=== PATIENT | male | born 1960 | race Caucasian/White ===

== ENCOUNTER 2018-05-07 22:57 | Inpatient (IN) | payer MEDICAID ==
[2018-05-07] MEDS: GLUCAGON 1 MG INJ IV (23:00)
[2018-05-07] MEDS ORDERED: GLUCAGON 1 MG INJ ×2 (23:01→23:03)
[2018-05-07] MEDS: CALCIUM GLUCONATE 10% 2 GM in DEXTROSE 5% 100 ML IVPB (23:19)
[2018-05-07] MEDS: SOD CHLORIDE 0.9% 1,000 ML IV (23:20)
[2018-05-07] MEDS: LACTATED RINGER'S 1,000 ML IV ×2 (23:46)
[2018-05-07 23:59] LABS: AADO2 Arterial 184.1 mmHg (7.0-24.0); Allen Test ACCEPTAB; Arterial Base Excess -11.9 mmol/L (-3.0-3); Arterial Blood Gas Oxygen Sat 99.6 mmHG (95.0-98.0); Arterial COHb 0.3 % (0.0-3.0); Arterial Fraction of Oxyhgb 99.1 % (93.0-99.0); Arterial HCO3 12.8 mmol/L (22.0-26.0); Arterial MetHb 0.2 % (0.0-1.5); Arterial Total Hemglobin 11.1 g/dl (12.0-18.0); Arterial pCO2 25.9 mmhg (35-45); Blood Gas Low PEEP Setting 0 cmH2O; MODE VENT - AC; Site Right Radial
[2018-05-08] MEDS ORDERED: NORepinephrine 8MG/250 ML (PMX 250 ML IV
[2018-05-08 00:20] LABS: URINE PH (Dip) POC 5.5 (5.0-8.5)
[2018-05-08 00:20] LABS: URINE BLOOD (Dip) POC 2+ (NEGATIVE); URINE GLUCOSE (Dip) POC Negative (NEGATIVE); URINE KETONES (Dip) POC Trace (NEGATIVE); URINE LEUKOCYTE EST (Dip) POC 3+ (NEGATIVE); URINE NITRITE (Dip) POC Negative (NEGATIVE); URINE TOTAL PROTEIN POC 2+ (NEGATIVE)
[2018-05-08 00:20] LABS: LACTIC ACID 0.7 mmol/L (0.5-2.0)
[2018-05-08 00:21] LABS: ADD MAN DIFF? NO
[2018-05-08 00:22] LABS: BASOPHILS % 0.5 % (0.0-2.0); EOSINOPHILS # 0.2 10^3/ul (0.0-0.5); EOSINOPHILS % 3.1 % (0.0-7.0); HEMATOCRIT 36.9 % (42.0-52.0); HEMOGLOBIN 11.3 g/dl (14.0-18.0); LYMPHOCYTES # 1.8 10^3/ul (0.8-2.9); LYMPHOCYTES % 30.3 % (15.0-51.0); MEAN CORPUSCULAR HEMOGLOBIN 26.7 pg (29.0-33.0); MEAN CORPUSCULAR HGB CONC 30.6 g/dl (32.0-37.0); MEAN PLATELET VOLUME 11.5 fl (7.4-10.4); MONOCYTE # 0.7 10^3/ul (0.3-0.9); MONOCYTES % 11.5 % (0.0-11.0); NEUTROPHIL # 3.2 10^3/ul (1.6-7.5); NEUTROPHILS % 54.3 % (39.0-77.0); PLATELET COUNT 258 10^3/UL (140-415); RED BLOOD COUNT 4.24 10^6/ul (4.70-6.10); RED CELL DISTRIBUTION WIDTH 15.8 % (11.5-14.5)
[2018-05-08 00:22] LABS: WHITE BLOOD COUNT 5.9 10^3/ul (4.8-10.8)
[2018-05-08 00:41] LABS: ANION GAP 13 (8-16); BLOOD UREA NITROGEN 47 mg/dl (7-20); CALCIUM 9.1 mg/dl (8.4-10.2); CARBON DIOXIDE 15 mmol/L (21-31); CHLORIDE 117 mmol/L (97-110); CREATININE 3.93 mg/dl (0.61-1.24); GLUCOSE 99 mg/dl (70-220); POTASSIUM 4.4 mmol/L (3.5-5.1); SODIUM 141 mmol/L (135-144)
[2018-05-08 00:46] LABS: INR 0.98; PROTIME 13.1 Sec (11.9-14.9)
[2018-05-08 00:47] LABS: PARTIAL THROMBOPLASTIN TIME 28.1 Sec (25.0-35.0)
[2018-05-08 00:55] LABS: TROPONIN-I < 0.012 ng/ml (0.000-0.120)
[2018-05-08 01:13] LABS: AADO2 Arterial 158.3 mmHg (7.0-24.0); Allen Test ACCEPTAB; Arterial Base Excess -11.1 mmol/L (-3.0-3); Arterial Blood Gas Oxygen Sat 98.8 mmHG (95.0-98.0); Arterial COHb 0.3 % (0.0-3.0); Arterial Fraction of Oxyhgb 98.4 % (93.0-99.0); Arterial HCO3 14.2 mmol/L (22.0-26.0); Arterial MetHb 0.1 % (0.0-1.5); Arterial Total Hemglobin 11.5 g/dl (12.0-18.0); Arterial pCO2 29.9 mmhg (35-45); Blood Gas Low PEEP Setting 0 cmH2O; MODE VENT - AC; Site Right Radial
[2018-05-08 01:14] LABS: ADD UMIC YES; UR ASCORBIC ACID NEGATIVE (NEGATIVE); UR BACTERIA FEW /HPF (NONE SEEN); UR BILIRUBIN (Dip) NEGATIVE (NEGATIVE); UR BLOOD (Dip) 2+ mg/dL (NEGATIVE); UR CLARITY CLOUDY (CLEAR); UR COLOR YELLOW (YELLOW); UR GLUCOSE (Dip) NEGATIVE (NEGATIVE); UR KETONES (Dip) TRACE mg/dL (NEGATIVE); UR LEUKOCYTE ESTERASE (Dip) 3+ Leu/ul (NEGATIVE); UR NITRITE (Dip) NEGATIVE (NEGATIVE); UR RBC 113 /HPF (0-5); UR TOTAL PROTEIN (Dip) 1+ mg/dl (NEGATIVE); UR UROBILINOGEN (Dip) NEGATIVE (NEGATIVE); UR WBC 100 /HPF (0-5)
[2018-05-08] MEDS: CEFTRIAXONE 1 GM/50 ML (PMX) 50 ML IVPB ×2 (01:17→04:55)
[2018-05-08 01:23] LABS: ETHANOL < 10.0 mg/dl; SALICYLATE < 1.0 mg/dl (5.0-30.0)
[2018-05-08 01:23] LABS: ACETAMINOPHEN < 10.0 ug/ml (10.0-30.0)
[2018-05-08] MEDS ORDERED: ACETAMINOPHEN 650MG/20.3ML CUP PO (01:30)
[2018-05-08] MEDS ORDERED: ONDANSETRON 4 MG INJ IV (01:30)
[2018-05-08] MEDS ORDERED: ALBUTEROL HFA 8 GM INHALER INH (01:30)
[2018-05-08] MEDS: SOD CHLORIDE 0.9% 1,000 ML IV (02:00)
[2018-05-08] MEDS ORDERED: GLUCAGON 1 MG INJ IV (03:04)
[2018-05-08] MEDS: GLUCAGON 1 MG INJ IV (03:11)
[2018-05-08] MEDS: LORAZEPAM 2 MG INJ IV (03:37)
[2018-05-08 04:03] LABS: ANION GAP 15 (8-16); BLOOD UREA NITROGEN 41 mg/dl (7-20); CALCIUM 9.2 mg/dl (8.4-10.2); CARBON DIOXIDE 17 mmol/L (21-31); CHLORIDE 116 mmol/L (97-110); CREATININE 3.46 mg/dl (0.61-1.24); POTASSIUM 4.6 mmol/L (3.5-5.1); SODIUM 143 mmol/L (135-144)
[2018-05-08 04:06] LABS: GLUCOSE 145 mg/dl (70-220)
[2018-05-08] MEDS: NA BICARBONATE 8.4% 50 ML SYG IV (04:26)
[2018-05-08] MEDS: MIDAZOLAM 1 MG/ML 2 ML INJ IV (04:43)
[2018-05-08] MEDS: MIDAZOLAM (DRIP) 50 mg/50 mL 50 ML IV ×2 (04:43→10:17)
[2018-05-08 05:07] LABS: ADD UMIC YES; UR AMORPHOUS CRYSTAL FEW /HPF (NONE SEEN); UR ASCORBIC ACID NEGATIVE (NEGATIVE); UR BACTERIA FEW /HPF (NONE SEEN); UR BILIRUBIN (Dip) NEGATIVE (NEGATIVE); UR BLOOD (Dip) 3+ mg/dL (NEGATIVE); UR CLARITY CLOUDY (CLEAR); UR COLOR YELLOW (YELLOW); UR GLUCOSE (Dip) NEGATIVE (NEGATIVE); UR KETONES (Dip) TRACE mg/dL (NEGATIVE); UR LEUKOCYTE ESTERASE (Dip) 3+ Leu/ul (NEGATIVE); UR NITRITE (Dip) NEGATIVE (NEGATIVE); UR RBC 113 /HPF (0-5); UR SPECIFIC GRAVITY (Dip) 1.009 (1.003-1.030); UR SQUAMOUS EPITHELIAL CELL FEW /HPF (FEW); UR TOTAL PROTEIN (Dip) 1+ mg/dl (NEGATIVE); UR UROBILINOGEN (Dip) NEGATIVE (NEGATIVE); UR WBC > 182 /HPF (0-5)
[2018-05-08 05:09] LABS: AMPHETAMINE/METHAMPHETAMINE Negative (NEGATIVE); BARBITURATES Negative (NEGATIVE); BENZODIAZEPINES Negative (NEGATIVE); CANNABINOIDS Negative (NEGATIVE); COCAINE Negative (NEGATIVE); OPIATES Negative (NEGATIVE)
[2018-05-08 05:14] LABS: SODIUM,URINE RANDOM 55 mmol/L (30-90)
[2018-05-08 05:33] LABS: ADD MAN DIFF? NO
[2018-05-08 05:52] LABS: CREATINE KINASE 911 IU/L (23-200)
[2018-05-08 05:56] LABS: WHITE BLOOD COUNT 10.8 10^3/ul (4.8-10.8)
[2018-05-08 05:56] LABS: BASOPHILS % 0.2 % (0.0-2.0); EOSINOPHILS % 0.4 % (0.0-7.0); HEMATOCRIT 36.9 % (42.0-52.0); HEMOGLOBIN 11.4 g/dl (14.0-18.0); LYMPHOCYTES # 0.7 10^3/ul (0.8-2.9); LYMPHOCYTES % 6.5 % (15.0-51.0); MEAN CORPUSCULAR HEMOGLOBIN 26.9 pg (29.0-33.0); MEAN CORPUSCULAR HGB CONC 30.9 g/dl (32.0-37.0); MEAN PLATELET VOLUME 11.4 fl (7.4-10.4); MONOCYTE # 0.5 10^3/ul (0.3-0.9); MONOCYTES % 4.8 % (0.0-11.0); NEUTROPHIL # 9.5 10^3/ul (1.6-7.5); NEUTROPHILS % 87.7 % (39.0-77.0); PLATELET COUNT 242 10^3/UL (140-415); RED BLOOD COUNT 4.24 10^6/ul (4.70-6.10); RED CELL DISTRIBUTION WIDTH 15.9 % (11.5-14.5)
[2018-05-08 06:00] LABS: ALANINE AMINOTRANSFERASE 33 IU/L (13-69); ALBUMIN 3.4 g/dl (3.3-4.9); ALBUMIN/GLOBULIN RATIO 1.03; ALKALINE PHOSPHATASE 81 IU/L (42-121); ANION GAP 14 (8-16); ASPARTATE AMINO TRANSFERASE 31 IU/L (15-46); BILIRUBIN,INDIRECT 0.2 mg/dl (0-1.1); BILIRUBIN,TOTAL 0.2 mg/dl (0.2-1.3); BLOOD UREA NITROGEN 43 mg/dl (7-20); CALCIUM 8.9 mg/dl (8.4-10.2); CARBON DIOXIDE 20 mmol/L (21-31); CHLORIDE 116 mmol/L (97-110); CREATININE 3.32 mg/dl (0.61-1.24); GLUCOSE 140 mg/dl (70-220); POTASSIUM 4.6 mmol/L (3.5-5.1); SODIUM 145 mmol/L (135-144); TOTAL PROTEIN 6.7 g/dl (6.1-8.1)
[2018-05-08 06:04] LABS: CK INDEX 0.8
[2018-05-08 06:05] LABS: TROPONIN-I < 0.012 ng/ml (0.000-0.120)
[2018-05-08 06:11] LABS: HEMOGLOBIN A1C 5.3 % (0-5.9)
[2018-05-08 06:15] LABS: OSMOLALITY,URINE 302 mOsm/kg (250-1200)
[2018-05-08 06:24] LABS: THYROID STIMULATING HORMONE 0.515 MIU/L (0.465-4.680)
[2018-05-08] MEDS: PANTOPRAZOLE 40 MG INJ IV (06:28)
[2018-05-08] MEDS: SOD CHLORIDE 0.45% 1,000 ML IV (07:52)
[2018-05-08 08:08] LABS: OSMOLALITY 309 mOsm/kg (280-295)
[2018-05-08 08:59] LABS: AADO2 Arterial 129.7 mmHg (7.0-24.0); Allen Test ACCEPTAB; Arterial Base Excess -9.8 mmol/L (-3.0-3); Arterial Blood Gas Oxygen Sat 99.1 mmHG (95.0-98.0); Arterial COHb 0.1 % (0.0-3.0); Arterial HCO3 15.5 mmol/L (22.0-26.0); Arterial MetHb 0 % (0.0-1.5); Arterial Total Hemglobin 12.9 g/dl (12.0-18.0); Arterial pCO2 32.7 mmhg (35-45); MODE VENT - AC; Site Right Radial
[2018-05-08] MEDS: PROPOFOL 100 ML IV ×2 (10:30→14:37)
[2018-05-08] MEDS: FENTAnyl (DRIP) 1000 mcg/100mL 100 ML IV (11:16)
[2018-05-08 12:04] LABS: AADO2 Arterial 113.8 mmHg (7.0-24.0); Allen Test ACCEPTAB; Arterial Base Excess -10.7 mmol/L (-3.0-3); Arterial Blood Gas Oxygen Sat 99.1 mmHG (95.0-98.0); Arterial COHb 0.3 % (0.0-3.0); Arterial Fraction of Oxyhgb 98.7 % (93.0-99.0); Arterial HCO3 13.7 mmol/L (22.0-26.0); Arterial MetHb 0.1 % (0.0-1.5); Arterial Total Hemglobin 12.1 g/dl (12.0-18.0); Arterial pCO2 26.6 mmhg (35-45); MODE VENT - AC; Site Right Brachial
[2018-05-08 12:06] LABS: CREATINE KINASE 840 IU/L (23-200)
[2018-05-08 12:15] LABS: CK INDEX 0.8
[2018-05-08 12:16] LABS: CK-MB 6.56 ng/ml (0.0-2.4); TROPONIN-I < 0.012 ng/ml (0.000-0.120)
[2018-05-08] MEDS: DEXTROSE 5%-0.45% NACL 1,000 ML IV (17:32)
[2018-05-08 19:01] LABS: CREATININE,URINE RANDOM 66.39 mg/dl (20-370)
[2018-05-08 19:01] LABS: SODIUM,URINE RANDOM 66 mmol/L (30-90)
[2018-05-08 19:03] LABS: ADD UMIC YES; UR ASCORBIC ACID NEGATIVE (NEGATIVE); UR BACTERIA FEW /HPF (NONE SEEN); UR BILIRUBIN (Dip) NEGATIVE (NEGATIVE); UR BLOOD (Dip) 1+ mg/dL (NEGATIVE); UR CLARITY SLIGHTLY CLOUDY (CLEAR); UR COLOR YELLOW (YELLOW); UR GLUCOSE (Dip) NEGATIVE (NEGATIVE); UR KETONES (Dip) TRACE mg/dL (NEGATIVE); UR LEUKOCYTE ESTERASE (Dip) 3+ Leu/ul (NEGATIVE); UR NITRITE (Dip) NEGATIVE (NEGATIVE); UR RBC 24 /HPF (0-5); UR TOTAL PROTEIN (Dip) NEGATIVE (NEGATIVE); UR UROBILINOGEN (Dip) NEGATIVE (NEGATIVE); UR WBC > 182 /HPF (0-5)
[2018-05-09] MEDS: PROPOFOL 100 ML IV (01:54)
[2018-05-09] MEDS: CEFTRIAXONE 1 GM/50 ML (PMX) 50 ML IVPB (04:59)
[2018-05-09 05:29] LABS: ADD MAN DIFF? NO
[2018-05-09 05:45] LABS: ABNORMAL IP MESSAGE 1; BASOPHILS % 0.2 % (0.0-2.0); EOSINOPHILS # 0.1 10^3/ul (0.0-0.5); EOSINOPHILS % 2.6 % (0.0-7.0); HEMATOCRIT 33.5 % (42.0-52.0); HEMOGLOBIN 10.6 g/dl (14.0-18.0); LYMPHOCYTES # 0.5 10^3/ul (0.8-2.9); LYMPHOCYTES % 9.8 % (15.0-51.0); MEAN CORPUSCULAR HEMOGLOBIN 27.2 pg (29.0-33.0); MEAN CORPUSCULAR HGB CONC 31.6 g/dl (32.0-37.0); MEAN CORPUSCULAR VOLUME 86.1 fl (82.0-101.0); MEAN PLATELET VOLUME 11.2 fl (7.4-10.4); MONOCYTE # 0.6 10^3/ul (0.3-0.9); MONOCYTES % 12.1 % (0.0-11.0); NEUTROPHILS % 74.7 % (39.0-77.0); PLATELET COUNT 189 10^3/UL (140-415); POSITIVE DIFF @See below; RED BLOOD COUNT 3.89 10^6/ul (4.70-6.10); RED CELL DISTRIBUTION WIDTH 15.8 % (11.5-14.5)
[2018-05-09 05:45] LABS: WHITE BLOOD COUNT 5.3 10^3/ul (4.8-10.8)
[2018-05-09 05:55] LABS: CREATINE KINASE 543 IU/L (23-200)
[2018-05-09 06:00] LABS: ALANINE AMINOTRANSFERASE 32 IU/L (13-69); ALBUMIN 3.1 g/dl (3.3-4.9); ALBUMIN/GLOBULIN RATIO 0.93; ALKALINE PHOSPHATASE 78 IU/L (42-121); ANION GAP 10 (8-16); ASPARTATE AMINO TRANSFERASE 22 IU/L (15-46); BILIRUBIN,INDIRECT 0.2 mg/dl (0-1.1); BILIRUBIN,TOTAL 0.2 mg/dl (0.2-1.3); BLOOD UREA NITROGEN 39 mg/dl (7-20); CALCIUM 8.9 mg/dl (8.4-10.2); CARBON DIOXIDE 18 mmol/L (21-31); CHLORIDE 120 mmol/L (97-110); CREATININE 3.14 mg/dl (0.61-1.24); GLUCOSE 98 mg/dl (70-220); POTASSIUM 3.8 mmol/L (3.5-5.1); SODIUM 144 mmol/L (135-144); TOTAL PROTEIN 6.4 g/dl (6.1-8.1)
[2018-05-09 06:00] LABS: LACTIC ACID 1.3 mmol/L (0.5-2.0)
[2018-05-09] MEDS: PANTOPRAZOLE 40 MG INJ IV (06:16)
[2018-05-09] MEDS: DEXTROSE 5%-0.45% NACL 1,000 ML IV ×2 (06:16→21:27)
[2018-05-09 06:30] LABS: MAGNESIUM 1.7 mg/dl (1.7-2.5)
[2018-05-09 06:30] LABS: PHOSPHORUS 2.8 mg/dl (2.5-4.9)
[2018-05-09 09:57] LABS: AADO2 Arterial 94.7 mmHg (7.0-24.0); Allen Test ACCEPTAB; Arterial Base Excess -8.8 mmol/L (-3.0-3); Arterial Blood Gas Oxygen Sat 98.7 mmHG (95.0-98.0); Arterial COHb 0.3 % (0.0-3.0); Arterial Fraction of Oxyhgb 98.4 % (93.0-99.0); Arterial MetHb 0 % (0.0-1.5); Arterial Total Hemglobin 12.7 g/dl (12.0-18.0); Arterial pCO2 31.1 mmhg (35-45); Blood Gas PS 8; MODE 816; Site Right Radial
[2018-05-09] MEDS: AMLODIPINE 5 MG TAB PO (11:47)
[2018-05-09] MEDS: FAMOTIDINE 20 MG TAB PO (12:19)
[2018-05-10] MEDS: PANTOPRAZOLE 40 MG INJ IV (05:23)
[2018-05-10] MEDS: CEFTRIAXONE 1 GM/50 ML (PMX) 50 ML IVPB (05:23)
[2018-05-10 06:30] LABS: ADD MAN DIFF? NO
[2018-05-10 06:36] LABS: WHITE BLOOD COUNT 6.6 10^3/ul (4.8-10.8)
[2018-05-10 06:36] LABS: BASOPHILS % 0.2 % (0.0-2.0); EOSINOPHILS # 0.2 10^3/ul (0.0-0.5); EOSINOPHILS % 2.4 % (0.0-7.0); HEMOGLOBIN 10.4 g/dl (14.0-18.0); LYMPHOCYTES # 1.2 10^3/ul (0.8-2.9); LYMPHOCYTES % 17.5 % (15.0-51.0); MEAN CORPUSCULAR HGB CONC 31.5 g/dl (32.0-37.0); MEAN CORPUSCULAR VOLUME 85.7 fl (82.0-101.0); MEAN PLATELET VOLUME 11.6 fl (7.4-10.4); MONOCYTE # 0.8 10^3/ul (0.3-0.9); MONOCYTES % 12.2 % (0.0-11.0); NEUTROPHIL # 4.5 10^3/ul (1.6-7.5); NEUTROPHILS % 67.4 % (39.0-77.0); PLATELET COUNT 188 10^3/UL (140-415); RED BLOOD COUNT 3.85 10^6/ul (4.70-6.10); RED CELL DISTRIBUTION WIDTH 15.9 % (11.5-14.5)
[2018-05-10 06:58] LABS: MAGNESIUM 1.5 mg/dl (1.7-2.5)
[2018-05-10 07:20] LABS: ALANINE AMINOTRANSFERASE 26 IU/L (13-69); ALBUMIN/GLOBULIN RATIO 0.93; ALKALINE PHOSPHATASE 70 IU/L (42-121); ANION GAP 11 (8-16); ASPARTATE AMINO TRANSFERASE 20 IU/L (15-46); BILIRUBIN,INDIRECT 0.4 mg/dl (0-1.1); BILIRUBIN,TOTAL 0.4 mg/dl (0.2-1.3); BLOOD UREA NITROGEN 33 mg/dl (7-20); CALCIUM 8.8 mg/dl (8.4-10.2); CARBON DIOXIDE 15 mmol/L (21-31); CHLORIDE 120 mmol/L (97-110); CREATININE 3.04 mg/dl (0.61-1.24); GLUCOSE 95 mg/dl (70-220); POTASSIUM 3.9 mmol/L (3.5-5.1); SODIUM 142 mmol/L (135-144); TOTAL PROTEIN 6.2 g/dl (6.1-8.1)
[2018-05-10] MEDS ORDERED: FAMOTIDINE 20 MG TAB PO (09:00)
[2018-05-10] MEDS: MAGNESIUM SULFATE 1 GM/D5W 100 ML IVPB (09:00)
[2018-05-10] MEDS: AMLODIPINE 5 MG TAB PO (09:00)
[2018-05-10] MEDS: CITRIC ACID/SODIUM CITRATE 15 ML CUP PO ×2 (10:11→21:27)
[2018-05-10] MEDS: FAMOTIDINE 20 MG TAB PO (10:12)
[2018-05-10] MEDS: MAGNESIUM SULFATE 4 GM/100 ML 100 ML IVPB (11:38)
[2018-05-10 15:43] LABS: CREATININE, RANDOM URINE 80 mg/dL (20-370); MICROALBUMIN 13.6 mg/dL; MICROALBUMIN/CREATININE RATIO 170 (<30)
[2018-05-11] MEDS: CEFTRIAXONE 1 GM/50 ML (PMX) 50 ML IVPB (04:30)
[2018-05-11] MEDS: PANTOPRAZOLE 40 MG INJ IV (05:40)
[2018-05-11 06:18] LABS: ADD MAN DIFF? NO
[2018-05-11 06:26] LABS: WHITE BLOOD COUNT 5.5 10^3/ul (4.8-10.8)
[2018-05-11 06:26] LABS: BASOPHILS % 0.2 % (0.0-2.0); EOSINOPHILS # 0.2 10^3/ul (0.0-0.5); EOSINOPHILS % 3.8 % (0.0-7.0); HEMATOCRIT 30.8 % (42.0-52.0); HEMOGLOBIN 9.7 g/dl (14.0-18.0); LYMPHOCYTES % 18.7 % (15.0-51.0); MEAN CORPUSCULAR HEMOGLOBIN 27.2 pg (29.0-33.0); MEAN CORPUSCULAR HGB CONC 31.5 g/dl (32.0-37.0); MEAN CORPUSCULAR VOLUME 86.5 fl (82.0-101.0); MEAN PLATELET VOLUME 11.2 fl (7.4-10.4); MONOCYTE # 0.7 10^3/ul (0.3-0.9); MONOCYTES % 13.1 % (0.0-11.0); NEUTROPHIL # 3.5 10^3/ul (1.6-7.5); NEUTROPHILS % 63.8 % (39.0-77.0); PLATELET COUNT 154 10^3/UL (140-415); RED BLOOD COUNT 3.56 10^6/ul (4.70-6.10); RED CELL DISTRIBUTION WIDTH 15.8 % (11.5-14.5)
[2018-05-11 07:17] LABS: ALANINE AMINOTRANSFERASE 30 IU/L (13-69); ALBUMIN 2.9 g/dl (3.3-4.9); ALBUMIN/GLOBULIN RATIO 0.93; ALKALINE PHOSPHATASE 66 IU/L (42-121); ANION GAP 12 (8-16); ASPARTATE AMINO TRANSFERASE 23 IU/L (15-46); BILIRUBIN,INDIRECT 0.3 mg/dl (0-1.1); BILIRUBIN,TOTAL 0.3 mg/dl (0.2-1.3); BLOOD UREA NITROGEN 32 mg/dl (7-20); CALCIUM 8.8 mg/dl (8.4-10.2); CARBON DIOXIDE 17 mmol/L (21-31); CHLORIDE 118 mmol/L (97-110); CREATININE 3.28 mg/dl (0.61-1.24); GLUCOSE 95 mg/dl (70-220); POTASSIUM 3.8 mmol/L (3.5-5.1); SODIUM 143 mmol/L (135-144)
[2018-05-11] MEDS: FAMOTIDINE 20 MG TAB PO (08:39)
[2018-05-11] MEDS: AMLODIPINE 5 MG TAB PO (08:39)
[2018-05-11] MEDS: CITRIC ACID/SODIUM CITRATE 15 ML CUP PO (08:39)
== END 2018-05-11 13:30 | DRG 917 ==
LOC: E/R 22:57 → ICU 05-08 01:11 → TEL 05-09 19:01
PROC: 5A1945Z Respiratory Ventilation, 24-96 Consecutive Hours (ICD-10-PCS; principal; 2018-05-07)
PROC: 0BH17EZ Insertion of Endotracheal Airway into Trachea, Via Natural or Artificial Opening (ICD-10-PCS; 2018-05-07)
PROC: 4A133R1 Monitoring of Arterial Saturation, Peripheral, Percutaneous Approach (ICD-10-PCS; 2018-05-07)
DX: T44.7X2A Poisoning by beta-adrenoreceptor antagonists, intentional self-harm, initial encounter (principal); J96.00 Acute respiratory failure, unspecified whether with hypoxia or hypercapnia; N17.0 Acute kidney failure with tubular necrosis; G92 Toxic encephalopathy; E87.2 Acidosis; N39.0 Urinary tract infection, site not specified; E87.0 Hyperosmolality and hypernatremia; M62.82 Rhabdomyolysis; F33.2 Major depressive disorder, recurrent severe without psychotic features; I12.9 Hypertensive chronic kidney disease with stage 1 through stage 4 chronic kidney disease, or unspecified chronic kidney disease; N18.9 Chronic kidney disease, unspecified; D63.1 Anemia in chronic kidney disease; R00.1 Bradycardia, unspecified
CPT/HCPCS: 31500; 36415; 36600; 70450; 71045; 76775; 76937; 80048; 80053; 80307; 81001; 81003; 82043; 82550; 82553; 82803; 83036; 83605; 83735; 83930; 83935; 84100; 84155; 84300; 84443; 84484; 85025; 85610; 85730; 87081; 87086; 93005; 93306; 94002; 94003; 94770; 96365; 96366; 96367; 96375; 99291-25